=== PATIENT | male | born 1980 | race Hispanic/Latino ===

== ENCOUNTER 2022-03-30 11:58 | Emergency (ER) | payer OTHER ==
[~2022-03-30] VITALS: Ht 167.6 cm; Wt 88.5 kg
[2022-03-30] MEDS ORDERED: ACETAMINOPHEN 500 MG TABLET PO ONE (12:30)
[2022-03-30 12:31] LABS: BASOPHILS % (AUTO) 0.6 % (0.0-5.0); EOSINOPHILS % (AUTO) 3.9 % (0.0-8.0); HEMATOCRIT 45.3 % (42-54); LYMPHOCYTES % (AUTO) 23.3 % (21.0-51.0); MEAN CORPUSCULAR HEMOGLOBIN 31.4 pg (27.0-33.0); MEAN CORPUSCULAR HGB CONC 35.1 g/dL (32.0-36.0); MEAN CORPUSCULAR VOLUME 89.5 fL (79-99); MONOCYTES % (AUTO) 7.3 % (3.0-13.0); NEUTROPHILS % (AUTO) 64.4 % (40.0-77.0); PLATELET COUNT (AUTO) 264 K/uL (130-400); RED BLOOD CELL COUNT(AUTO) 5.06 MIL/uL (4.50-6.20); RED CELL DISTRIBUTION WIDTH 12.5 % (11.0-15.5); WHITE BLOOD COUNT (AUTO) 8.4 K/uL (4.8-10.8)
[2022-03-30 12:50] LABS: ALBUMIN 3.4 g/dL (3.5-5.0); BILIRUBIN,TOTAL 0.4 mg/dL (0.2-1.0); CREATININE 1.2 mg/dL (0.5-1.5); POTASSIUM 3.9 mmol/L (3.5-5.1); TOTAL PROTEIN, SERUM 7.1 g/dL (6.0-8.3)
[2022-03-30 12:52] VITALS: BP 145/100
[2022-03-30 13:14] LABS: AMPHET/METH SCREEN,URINE NEGATIVE (NEGATIVE); BARBITURATE SCREEN, URINE NEGATIVE (NEGATIVE); BENZODIAZEPINES SCREEN,URINE NEGATIVE (NEGATIVE); CANNABINOID SCREEN,URINE NEGATIVE (NEGATIVE); COCAINE SCREEN,URINE NEGATIVE (NEGATIVE); OPIATE SCREEN,URINE NEGATIVE (NEGATIVE); PHENCYCLIDINE SCREEN,URINE NEGATIVE (NEGATIVE)
[2022-03-30] MEDS ORDERED: NAPR500T6 PO (14:13)
== END 2022-03-30 14:17 | disposition home or self-care (01) ==
LOC: EDH 11:58
DX: G44.209 Tension-type headache, unspecified, not intractable (principal); I10 Essential (primary) hypertension
CPT/HCPCS: 36415; 70450; 80053; 80305; 84484; 85025; 93005